=== PATIENT | female | born 1935 | race Two or more races ===

== ENCOUNTER 2019-06-04 13:53 | Emergency (ER) | payer OTHER ==
[~2019-06-04] VITALS: Ht 152.4 cm; Wt 44.5 kg
[~2019-06-04 13:53] MED LIST: LISINOPRIL HCTZ; MEDROL8 MG PO; SIMVASTATIN20 MG; TOPROL XL100 M1
[2019-06-04] MEDS ORDERED: DRAMAMINE LESS25 MG PO (18:24)
== END 2019-06-04 18:20 | disposition home or self-care (01) ==
LOC: ER 13:53
DX: R42 Dizziness and giddiness (principal)